=== PATIENT | female | born 1985 | race Hispanic/Latino ===

== ENCOUNTER 2018-11-08 10:02 | Outpatient (CLI) | payer OTHER ==
--- NOTE | 2018-11-08 11:25 | MRI ---
BRAIN MRI AND PITUITARY MRI WITH AND WITHOUT CONTRAST: HISTORY: Increased prolactin. Headache. COMPARISON: None. FINDINGS: Brain MRI: Hemorrhage: No parenchymal hemorrhage. No extraaxial hematoma. Calvarium: Appropriate T1 marrow signal intensity Midline brain parenchyma: Unremarkable. Cerebrum:No parenchymal mass, mass effect or midline shift. Brain volume, age-appropriate. Cortical g ray-white matter differentiation is preserved. There are 2 nonspecific T2 and FLAIR subcortical hyperintensities in the left frontal subcortical white matter. Ventricles: No evidence of hydrocephalus. Sinuses and mastoid air cells: Adequate aeration Diffusion: Central arterial flow is maintained. Absent restricted diffusion. Postcontrast images: No pathologic enhancement of the brain parenchyma. Pituitary MRI: There is note of a partially empty sella. Midline pituitary stalk. No mass effect upon the optic amaury sm or optic nerves. On the precontrast images, homogeneous signal intensity of the pituitary gland. Postcontrast images do not demonstrate any heterogeneous or delayed enhancement. There is no evidence of a pituitary microadenoma. No evidence of a macroadenoma. Delayed postcontrast images demonstrate homogeneous enhancement. IMPRESSION: 1. Nonspecific left frontal subcortical FLAIR hyperintensities. 2. Partially empty sella. Correlate for intracranial hypertension. 3. No evidence of a microadenoma or macroadenoma, with regards to the pituitary gland. Transcribed Date/Time: 11/08/2018 11:55 AM
== END 2018-11-08 10:03 | disposition home or self-care (01) ==
LOC: BICMRI 10:02
PROVIDERS: ATTEND Physician Assistant
DX: E22.9 Hyperfunction of pituitary gland, unspecified (principal); N92.6 Irregular menstruation, unspecified
CPT/HCPCS: 70553

== ENCOUNTER 2019-02-03 17:13 | Emergency (ER) | payer SELFPAY ==
[2019-02-03] MEDS ORDERED: diphenhydrAMINE 50 MG/ML VIAL ONE (19:19)
[2019-02-03] MEDS ORDERED: Ketorolac Tromethamine 30 MG/ML VIAL ONE (19:19)
[2019-02-03] MEDS ORDERED: Metoclopramide HCl 10 MG/2 ML VIAL ONE (19:19)
--- NOTE | 2019-02-03 19:35 | CT ---
CT HEAD WITHOUT IV CONTRAST COMPARISON: MRI brain on 11/08/2018 HISTORY: Worsening left facial numbness. Nausea and headache and left ear pain. TECHNIQUE: Axial CT imaging at 5 mm intervals from vertex through skull base without contrast FINDINGS: There is no evidence of an acute infarction, hemorrhage, mass effect, or midline shift. 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 The ventricular system is otherwise normal in size, shape, and position. Visualized paranasal sinuses are clear. Osseous structures appear intact. IMPRESSION: 1. No acute intracranial abnormality demonstrated.
[2019-02-03 19:50] LABS: #Eosinphils 0.1 thou/uL (0.0-0.7); #Lymphocytes 2.9 thou/uL (1.20-3.40); #Monocytes 0.5 thou/uL (0.11-0.59); #Neutrophils 5.8 thou/uL (1.40-6.50); %Basophils 0.5 % (0.0-1.0); %Eosinophils 1.6 % (0.0-10.0); %Lymphocytes 30.7 % (21.0-51.0); %Monocytes 5.5 % (0.0-10.0); %Neutrophils 61.7 % (42.0-75.0); Hemoglobin 13.5 g/dL (12.0-16.0); Mean Corpuscular HGB CONC 33.8 g/dL (32.0-36.0); Mean Corpuscular Hemoglobin 28.4 pg (27.0-31.0); Mean Corpuscular Volume 83.9 fL (78.0-98.0); Mean Platelet Volume 7.3 fL (7.4-10.4); Platelet Count 368 thou/uL (130-400); RBC Distribution Width 12.6 % (11.5-14.5); Red Blood Cell (RBC) Count 4.76 mill/uL (4.20-5.40); White Blood Cell (WBC) Count 9.4 thou/uL (4.8-10.8)
[2019-02-03 19:59] LABS: Pregnancy Test - Urine (BHCG) Negative (Negative); Pregu Control Background? CLEAR/WHITE (CLR/WHITE); Pregu Control Bar Appear? YES (CONTROL BAR); Specific Gravity 1.025 (1.002-1.036)
[2019-02-03 20:01] LABS: Bilirubin Negative (Negative); Blood, Urine 1+ (Negative); Clarity Clear (Clear); Glucose, Urine (Dipstick) Normal (Negative); Leukocyte 250 Leu/uL (Negative); Nitrite Negative (Negative); Protein, Urine (Dipstick) 10 mg/dL (Neg-Trace); Urobilinogen Normal mg/dL (Less than 2); WBC/HPF 0-3 HPF (0-3)
[2019-02-03 20:05] LABS: ALT (SGPT) 24 U/L (8-55); AST (SGOT) 21 U/L (5-34); Albumin 4.5 g/dL (3.5-5.0); Alkaline Phosphatase 87 U/L (40-110); Anion Gap 13 mmol/L (10-20); BUN (Urea Nitrogen) 10 mg/dL (7.0-18.7); Bilirubin, Total 0.3 mg/dL (0.2-1.2); Calc. Creatinine Clearance 0 mL/min (70-130); Calcium 9.3 mg/dL (7.8-10.44); Carbon Dioxide 24 mmol/L (22-29); Chloride 105 mmol/L (98-107); Estimated GFR-MDRD 88; Globulin 3.6 g/dL (2.4-3.5); Glucose 91 mg/dL (70-105); Protein, Total 8.1 g/dL (6.0-8.3); Sodium 138 mmol/L (136-145)
[2019-02-03 20:10] LABS: Bacteria/HPF 3+ HPF (None Seen)
[2019-02-03] MEDS ORDERED: Dexamethasone 10 MG/ML VIAL ONE (20:23)
== END 2019-02-03 20:35 | disposition home or self-care (01) ==
LOC: ERS 17:13
DX: G43.909 Migraine, unspecified, not intractable, without status migrainosus (principal)
CPT/HCPCS: 70450; 80053; 81003; 81015; 81025; 85025; 96365; 96375; J1100; J1200; J1885; J2765

== ENCOUNTER 2019-02-06 22:47 | Emergency (ER) | payer SELFPAY ==
[2019-02-06] MEDS ORDERED: diphenhydrAMINE 50 MG/ML VIAL ONE (23:33)
[2019-02-06] MEDS ORDERED: Ketorolac Tromethamine 30 MG/ML VIAL ONE (23:33)
[2019-02-06] MEDS ORDERED: Metoclopramide HCl 10 MG/2 ML VIAL ONE (23:33)
== END 2019-02-07 01:09 | disposition home or self-care (01) ==
LOC: ERS 22:47
DX: R51 Headache (principal)
CPT/HCPCS: 96365; 96375; J1200; J1885; J2765